=== PATIENT | male | born 1945 | race Caucasian/White ===

== ENCOUNTER 2020-11-27 16:49 | Emergency (ER) | payer OTHER, SELFPAY ==
--- NOTE | ~2020-11-27 | XR_ITS ---
EXAMINATION: XR chest 2V DATE: 11/27/2020 18:02 INDICATION: Soreness of breath, cough and congestion TECHNIQUE: PA and lateral views of the chest were obtained. COMPARISON: None FINDINGS: Mild streaky atelectasis at the left lung base. No other airspace opacities, pulmonary edema, pleural effusion or pneumothorax. Heart size is normal. Tortuous and atherosclerotic thoracic aorta. There i s mild widening of the superior mediastinum with segmental narrowing of the trachea near the thoracic inlet suggesting extrinsic compression due to a goiter, lymphadenopathy or other mass. There are ulises dging osteophytes at multiple levels in the spine, consistent with diffuse idiopathic skeletal hypero stosis (DISH). IMPRESSION: 1. Mild left basilar atelectasis. No other acute cardiopulmonary disease. 2. Narrowing of the trachea at the thoracic inlet with appearance suggesting extrinsic compression wh ich could be due to goiter, lymphadenopathy or other superior mediastinal mass. Consider follow-up co ntrast-enhanced chest CT for further evaluation. Reviewed, dictated and finalized at location A. IMPRESSION: 1. Mild left basilar atelectasis. No other acute cardiopulmonary disease. 2. Narrowing of the trachea at the thoracic inlet with appearance suggesting ex trinsic compression which could be due to goiter, lymphadenopathy or other supe rior mediastinal mass. Consider follow-up contrast-enhanced chest CT for furthe r evaluation.
[2020-11-27 16:57] VITALS: BP 187/83; PULSE 102; RESP 14; TEMP 36.8; O2SAT 97
--- NOTE | 2020-11-27 17:27 | ED.URI ---
HPI - URI/Sore Throat General Chief Complaint: Upper Respiratory Infection Stated Complaint: sore throat congestion Time Seen by Provider: 11/27/20 17:27 Source: patient, family, RN notes reviewed and old records reviewed Mode of arrival: ambulatory Limitations: no limitations History of Present Illness HPI Narrative: 75 year old male who presents to [facility] care accompanied by son with complaints of cough, nasal drainage,with congestion, hoarseness since Monday. Son states that patient seems more short of breath and more tired and fatigued. Patient does have history of some peripheral edema but there has been no increase in his swelling. Son states that his brother and sister in law with kids visited November 13 and they ended up all sick with colds, congestion and ear infections, knows sister in law was tested for covid and was negative, Patient has had [employer] Covid vaccine. MD elicited complaint: cough, sore throat, rhinorrhea and nasal congestion Onset (ago): week(s) (since Monday) Consistency: constant Description of mucous: yellow Able to tolerate fluids by mouth: Yes Related Data Home Medications Medication Instructions Recorded Confirmed amlodipine 11/27/20 carvedilol 11/27/20 fluoxetine mg 11/27/20 metformin mg 11/27/20 pravastatin 11/27/20 trazodone 11/27/20 Allergies Allergy/AdvReac Type Severity Reaction Status Date / Time No Known Allergies Allergy Unknown Verified 11/27/20 17:14 Review of Systems Review of Systems: Narrative: CONSTITUTIONAL: Denies fever, chills, or sweats. EYES: Denies visual changes, redness, or discharge. ENT: Positive rhinorrhea, congestion, sore throat, no otalgia. CARDIOVASCULAR: Denies chest pain, palpitations, or edema. RESPIRATORY: positive for cough or dyspnea with exertion GASTROINTESTINAL: Denies abdominal pain, nausea, vomiting, or diarrhea. GENITOURINARY: Denies dysuria or hematuria. SKIN: Denies rash or itching. MUSCULOSKELETAL: Denies back pain, joint pain, or myalgia. NEUROLOGIC: Denies headache, numbness, or weakness. PSYCHIATRIC: Positive anxiety or depression. All systems reviewed & are unremarkable except as noted in HPI and below PMFSH Past Medical History Medical History (Updated 11/27/20 @ 18:40 by Claudia Castro NP) Anxiety and depression Diabetes Elevated cholesterol Hypertension Surgical History Surgical History (Updated 11/27/20 @ 18:22 by Claudia Castro NP) History of hernia repair Family History Family History (Updated 11/27/20 @ 18:50 by Claudia Castro NP) Father Acute myocardial infarction Grandparent Heart disease Mother Breast cancer Other Diabetes mellitus Hypertension Social History Social History (Updated 11/27/20 @ 18:22 by Claudia Castro NP) Smoking status: Never smoker Second hand tobacco smoke exposure: Yes Alcohol intake: never Substance use: never Living arrangements: alone Gender identity (if verbalized by the patient): Male Comments At time of signature, agree with nursing past medical, surgical, social and family history. There is no relevant family history pertinent to the presenting complaint Exam Narrative: Exam Narrative: GENERAL: well-nourished, and in no acute distress.uses cane to assist with ambulation HEAD: Normocephalic, atraumatic. EYES: PERRLA and EOMI. ENT: Nares red, clear rhinorrhea no epistaxis. Mucous membranes moist.TM's normal with dull light reflex, some bilateral ear wax, throat red with no lesions or exudates, copious post nasal drainage in back of throat NECK: Supple. lymphadenopathy CHEST: Coarse to auscultation. No acute respiratory distress. SAO2 97% on room air HEART: Regular rate and rhythm. No murmur heard. Normal peripheral pulses. ABDOMEN: Soft, nontender, nondistended, normal active bowel sounds. EXTREMITIES: Normal range of motion. 1+ pedal edema. SKIN: Warm, dry, no rash. NEURO: No focal deficits. Alert and oriented x3.Hard
[2020-11-30 20:39] LABS: SARS-CoV-2 RNA PCR Negative
== END 2020-11-27 18:34 | disposition home or self-care (01) ==
PROVIDERS: Emergency Provider Registered Nurse
DX: J06.9 Acute upper respiratory infection, unspecified (principal); Z20.822 Contact with and (suspected) exposure to COVID-19; E11.9 Type 2 diabetes mellitus without complications; E78.00 Pure hypercholesterolemia, unspecified; I10 Essential (primary) hypertension
CPT/HCPCS: 71046; 87081; 87426; 87804; 87880; 99213; C9803; G0463; U0003; U0005

== ENCOUNTER 2021-01-15 08:01 | Emergency (ER) | payer OTHER, SELFPAY ==
--- NOTE | 2021-01-15 08:08 | ED.GENADULT ---
HPI - General Adult General Chief complaint: Unspecified Stated complaint: Swollen feet Time Seen by Provider: 01/15/21 08:08 Source: patient and RN notes reviewed History of Present Illness HPI narrative: Patient is a 75-year-old male who presents the urgent care with his son with complaints of bilateral swollen feet and a bruise to the inside of the right upper thigh. Patient son states that he keeps his feet elevated and the swelling seems to subside fairly quickly however they were worried about the bruise to the right upper thigh. Patient states that he noticed that his feet were hanging at approximately 2 AM and that is how his feet started to swell. Patient states that they have improved just since this morning. Denies of any chest pain or shortness of breath. Denies of any history of DVT. Patient is unsure of how the bruise got to the right upper thigh but states he just noticed it this morning. No other acute complaints. No acute distress noted. Patient and son aware of the plan of care. Some parts of this dictation were generated by voice recognition software and may contain typographical and/or grammatical inaccuracies. Related Data Home Medications Medication Instructions Recorded Confirmed amlodipine 11/27/20 carvedilol 11/27/20 fluoxetine mg 11/27/20 metformin mg 11/27/20 pravastatin 11/27/20 trazodone 11/27/20 Allergies Allergy/AdvReac Type Severity Reaction Status Date / Time No Known Allergies Allergy Unknown Verified 11/27/20 17:14 Review of Systems Review of Systems: CONSTITUTIONAL: Denies fever, chills, or sweats. EYES: Denies visual changes, redness, or discharge. ENT: Denies rhinorrhea, congestion, sore throat, or otalgia. CARDIOVASCULAR: Denies chest pain, palpitations. Reports bilateral feet swelling RESPIRATORY: Denies cough or dyspnea. GASTROINTESTINAL: Denies abdominal pain, nausea, vomiting, or diarrhea. GENITOURINARY: Denies dysuria or hematuria. SKIN: Reports of a bruise to the right upper thigh MUSCULOSKELETAL: Denies back pain, joint pain, or myalgia. NEUROLOGIC: Denies headache, numbness, or weakness. All other systems reviewed are negative, except as documented in HPI. [facility] Past Medical History Medical History (Updated 01/15/21 @ 08:28 by JOSH Mireles) Anxiety and depression Diabetes Elevated cholesterol Hypertension Surgical History Surgical History (Updated 11/27/20 @ 18:22 by Claudia Castro NP) History of hernia repair Family History Family History (Updated 11/27/20 @ 18:50 by Claudia Castro NP) Father Acute myocardial infarction Grandparent Heart disease Mother Breast cancer Other Diabetes mellitus Hypertension Social History Social History (Updated 11/27/20 @ 18:22 by Claudia Castro NP) Smoking status: Never smoker Second hand tobacco smoke exposure: Yes Alcohol intake: never Substance use: never Gender identity (if verbalized by the patient): Male Comments At the time of my signature, I reviewed and agree with the nursing past medical, surgical, social, and family history. There is no relevant family history pertinent to the patient complaint. Exam Narrative: GENERAL: This is a well-nourished, well-developed patient, in no apparent distress. HEAD: normocephalic, atraumatic. EYES: PERRL. Sclera clear/white. Vision is grossly intact. EARS: External ears normal NOSE: External nose normal with no obvious nasal discharge, nares without redness, no rhinorrhea. THROAT: Mucous membranes moist NECK: Neck supple CARDIOVASCULAR: Regular rate and rhythm RESPIRATORY: Clear to auscultation. Breath sounds equal bilaterally. No wheezes, rales, or rhonchi. SKIN: 23 x 9 cm area of ecchymosis noted to the medial aspect of the right thigh. Warm, intact with no suspicious lesions or rash, good texture and turgor. NEURO: awake, alert, and oriented to person, place and time. There were no obvious focal neurologic
[2021-01-15 08:11] VITALS: BP 166/73; PULSE 71; RESP 16; TEMP 36.8; O2SAT 99
== END 2021-01-15 08:35 | disposition home or self-care (01) ==
PROVIDERS: Emergency Provider Nurse Practitioner Family
DX: R60.9 Edema, unspecified (principal); E11.9 Type 2 diabetes mellitus without complications; I10 Essential (primary) hypertension; F41.9 Anxiety disorder, unspecified; F32.9 Major depressive disorder, single episode, unspecified; Z79.84 Long term (current) use of oral hypoglycemic drugs
CPT/HCPCS: 99211; G0463